=== PATIENT | male | born 1980 | race Caucasian/White ===

== ENCOUNTER 2021-02-12 07:42 | Emergency (ER) | payer OTHER ==
[~2021-02-12] VITALS: Ht 190.5 cm; Wt 99.8 kg
[2021-02-12] MEDS ORDERED: NOHOMEMEDICATIONS (07:55)
[2021-02-12 10:40] VITALS: BP 120/70
[2021-02-12] MEDS ORDERED: NORCO5 PO (10:43)
== END 2021-02-12 10:40 | disposition home or self-care (01) ==
LOC: ER 07:42
DX: M54.32 Sciatica, left side (principal)